=== PATIENT | male | born 1955 | race Caucasian/White ===

== ENCOUNTER → 2017-02-15 | Day surgery (SDC) | payer OTHER ==
[~2017-02-15] VITALS: Ht 182.8 cm; Wt 106.6 kg
[~2017-02-15] MED LIST: LEVOFLOXACIN500 MG PO; LISINOPRIL10 M1 PO; NORCO 10-325 T1 EACH PO
--- NOTE | ~2017-02-15 | O ---
[place], [place] OPERATIVE NOTE NAME: MIGUEL MESSER UNIT #: [id number] ROOM: DOCTOR: PAVAN HANNA MD BIRTHDATE: [birth year] DOS: 02/15/2017 HISTORY: This is a 61-year-old patient who presented with chief complaint of concern about colonic screening. ALLERGIES: No medication. FAMILY HISTORY: Noncontributory. PAST SURGICAL HISTORY: Hernia repair, left calf repair, lower back lipoma resection. Also multiple orthopedic surgeries, broken bone management, umbilical hernia. SOCIAL HISTORY: Nonsmoker, nonalcohol consumer. He has stopped 2 and 3 years ago. PROCEDURE: Today's procedure part of investigation is colonoscopy plus snare polypectomy. PREMEDICATION: Versed and Diprivan. SCOPE: Olympus folding colonoscope 10L video. REPORT: After putting the patient in left lateral position and application of lubricant to the scope, the scope was introduced, thereafter, under direct visualization, advanced through the length of colon without difficulty. Base of the cecum explored identified, and ileocecal valve was defined. Scattered mild diverticulosis encountered in right colon, transverse, descending colon, sigmoid and rectum. The rectal pouch sessile polypoid lesion with a snare was polypectomized. Samples removed. Air was suctioned out. The patient was extubated, tolerated procedure well. IMPRESSION: Rectal pouch polyp, status post snare polypectomy, scattered mild diverticulosis. PLAN AND DISCUSSION: High fiber diet. ACTIVITY: Ad ashutosh. FOLLOWUP: Routinely with you in office, p.r.n. visit with us in [facility]. Thank you very much indeed for your kind referral. [place], [place] OPERATIVE NOTE NAME: MIGUEL MESSER UNIT #: [id number] ROOM: DOCTOR: PAVAN HANNA MD BIRTHDATE: [birth year] PAVAN HANNA MD CM:OPRECORD:OPERATIVE NOTE [id number] PAVAN HANNA MD 02/15/17 1145 interface
[2017-02-15 09:00] VITALS: BP 136/74
[2017-02-15 09:40] VITALS: BP 121/53
[2017-02-15 09:55] VITALS: BP 128/76
[2017-02-15 10:04] VITALS: BP 137/77
== END | disposition home or self-care (01) ==
LOC: SDC 02-12 10:15
DX: Z12.11 Encounter for screening for malignant neoplasm of colon (principal); K62.1 Rectal polyp; I10 Essential (primary) hypertension; Z87.891 Personal history of nicotine dependence; Z98.890 Other specified postprocedural states; K57.30 Diverticulosis of large intestine without perforation or abscess without bleeding

== ENCOUNTER 2018-04-05 21:40 | Emergency (ER) | payer OTHER ==
[2018-04-05 22:11] LABS: BASO % 0.2 % (0.0-1.0); EOS # 0.1 10*3/uL (0.0-0.4); EOS % 0.6 % (1.0-4.0); HEMOGLOBIN 15.2 g/dl (14.0-18.0); LYMPH # 1.1 10*3/uL (1.3-4.4); LYMPH % 6.2 % (27.0-41.0); MEAN CORPUSCULAR HGB 30.4 pg (27.0-31.0); MEAN CORPUSCULAR HGB CONC 33.8 g/dl (33.0-37.0); MEAN PLATELET VOLUME 9.5 fl (9.6-12.3); MONO % 5.7 % (3.0-9.0); NEUT # 15.2 10*3/uL (2.3-7.9); NEUT % 86.8 % (47.0-73.0); PLATELET COUNT AUTOMATED 256 10*3/uL (130-400); RED CELL DISTRI WIDTH 13.8 % (0-14.5); WHITE BLOOD COUNT 17.5 10*3/uL (4.8-10.8)
== END 2018-04-06 01:03 | disposition home or self-care (01) ==
LOC: ED 21:40
PROVIDERS: Nurse Practitioner Family
DX: B34.9 Viral infection, unspecified (principal)

== ENCOUNTER 2019-12-21 18:33 | Emergency (ER) | payer OTHER ==
[~2019-12-21] VITALS: Wt 106.6 kg
== END 2019-12-21 20:20 | disposition home or self-care (01) ==
LOC: ED 18:33
DX: S30.0XXA Contusion of lower back and pelvis, initial encounter (principal); S20.221A Contusion of right back wall of thorax, initial encounter; X58.XXXA Exposure to other specified factors, initial encounter; Y93.89 Activity, other specified; Y92.89 Other specified places as the place of occurrence of the external cause; Y99.8 Other external cause status

== ENCOUNTER → 2024-02-07 | Outpatient (CLI) | payer OTHER ==
[2024-02-07 09:11] LABS: BASO % 0.4 % (0.0-1.0); EOS # 0.4 10*3/uL (0.0-0.4); EOS % 6.1 % (1.0-4.0); HEMATOCRIT 43.7 % (42.0-52.0); MEAN CELL VOLUME 92.2 fl (80.0-94.0); MEAN CORPUSCULAR HGB CONC 32.5 g/dl (33.0-37.0); MEAN PLATELET VOLUME 8.9 fl (9.6-12.3); MONO # 0.6 10*3/uL (0.1-1.0); MONO % 8.4 % (3.0-9.0); NEUT # 4.3 10*3/uL (2.3-7.9); NEUT % 60.1 % (47.0-73.0); PLATELET COUNT AUTOMATED 273 10*3/uL (130-400); RED BLOOD COUNT 4.74 10*6/uL (4.50-5.90); WHITE BLOOD COUNT 7.2 10*3/uL (4.8-10.8)
[2024-02-07 10:05] LABS: FREE T4 1.27 ng/dl (0.89-1.76); POTASSIUM 4.2 mmol/L (3.4-5.1); TOTAL PROTEIN 7.3 gm/dL (6.0-8.0)
[2024-02-07 10:45] LABS: VITAMIN D, 25-HYDROXY 80.2 ng/mL (30-100)
== END | disposition home or self-care (01) ==
LOC: LAB 02:27
PROVIDERS: ATTEND Internal Medicine
DX: Z12.5 Encounter for screening for malignant neoplasm of prostate (principal); I10 Essential (primary) hypertension

== ENCOUNTER 2024-03-23 09:18 | Emergency (ER) | payer OTHER ==
[~2024-03-23] VITALS: Ht 182.8 cm; Wt 104.3 kg
[2024-03-23] MEDS ORDERED: SERTRALINE HYDR50 MG PO (09:39)
[2024-03-23] MEDS ORDERED: Oxymetazoline Hydrochloride Nasal 15 ml bottle NAS ONE (09:45)
[2024-03-23] MEDS ORDERED: MUCINEX1200 M1 PO (09:51)
== END 2024-03-23 10:17 | disposition home or self-care (01) ==
LOC: ED 09:18
DX: J06.9 Acute upper respiratory infection, unspecified (principal); I10 Essential (primary) hypertension; Z90.49 Acquired absence of other specified parts of digestive tract; Z98.890 Other specified postprocedural states

== ENCOUNTER → 2024-04-01 | Outpatient (CLI) | payer OTHER ==
[~2024-04-01] MED LIST changes: +MUCINEX1200 M1 PO; +SERTRALINE HYDR50 MG PO
[2024-04-01 12:46] LABS: POTASSIUM 4.3 mmol/L (3.4-5.1); TOTAL PROTEIN 7.4 gm/dL (6.0-8.0)
[2024-04-01 13:06] LABS: VITAMIN D, 25-HYDROXY 66.7 ng/mL (30-100)
[2024-04-01 14:15] LABS: BILIRUBIN Negative (Negative); BLOOD 3+ (Negative); CLARITY Clear (Clear); COLOR Yellow (Yellow); GLUCOSE Negative (Negative); KETONE Negative (Negative); LEUKO ESTERASE Negative (Negative); NITRITE Negative (Negative); PH 5.5 (4.5-8.0); SPECIFIC GRAVITY 1.015 (1.001-1.030); UROBILINOGEN 0.2 E.U./dl (0.0-1.0)
[2024-04-01 14:27] LABS: BACTERIA 1+; MUCOUS 1+; RBC TNTC rbc/hpf (0-2)
== END | disposition home or self-care (01) ==
LOC: US 03-13 08:30 → LAB 01:31 → US 13:00 → LAB 13:00
PROVIDERS: ATTEND Internal Medicine Nephrology
DX: I12.9 Hypertensive chronic kidney disease with stage 1 through stage 4 chronic kidney disease, or unspecified chronic kidney disease (principal); N18.31 Chronic kidney disease, stage 3a; E83.9 Disorder of mineral metabolism, unspecified

== ENCOUNTER 2024-08-14 10:38 | Emergency (ER) | payer OTHER ==
[~2024-08-14] VITALS: Ht 182.8 cm; Wt 97.1 kg
[2024-08-14] MEDS ORDERED: SODIUM CHLORIDE 0.9% 1,000 ML IV ONE (10:45)
[2024-08-14] MEDS ORDERED: IOHEXOL 300 MG/ML 100 ML VIAL IV ONE (10:45)
[2024-08-14 10:58] LABS: BASO % 0.4 % (0.0-1.0); EOS # 0.2 10*3/uL (0.0-0.4); EOS % 2.4 % (1.0-4.0); HEMATOCRIT 38.5 % (42.0-52.0); MEAN CELL VOLUME 91.2 fl (80.0-94.0); MEAN CORPUSCULAR HGB 30.1 pg (27.0-31.0); MONO # 0.7 10*3/uL (0.1-1.0); MONO % 10.2 % (3.0-9.0); NEUT # 4.7 10*3/uL (2.3-7.9); NEUT % 67.9 % (47.0-73.0); PLATELET COUNT AUTOMATED 318 10*3/uL (130-400); RED BLOOD COUNT 4.22 10*6/uL (4.50-5.90); RED CELL DISTRI WIDTH 12.5 % (0-14.5)
[2024-08-14 11:21] LABS: POTASSIUM 4.6 mmol/L (3.4-5.1)
[2024-08-14] MEDS ORDERED: PERCOCET 5-3251 EACH PO (13:18)
== END 2024-08-14 13:23 | disposition home or self-care (01) ==
LOC: ED 10:38
PROVIDERS: Emergency Medicine
DX: M54.2 Cervicalgia (principal); C85.92 Non-Hodgkin lymphoma, unspecified, intrathoracic lymph nodes; R63.4 Abnormal weight loss; Z79.899 Other long term (current) drug therapy; Z98.890 Other specified postprocedural states